=== PATIENT | male | born 1990 | race Caucasian/White ===

== ENCOUNTER 2024-04-08 16:56 | Observation (INO) | payer BC ==
[2024-04-08] MEDS: Lactated Ringers 1,000 ML IV ONE (17:50)
[2024-04-08] MEDS: Sodium Chloride 0.9% 1,000 ML IV SCH (17:55)
[2024-04-08 18:00] LABS: BASOPHILS ABSOLUTE AUTO 0.1 K/mm3 (0.0-0.2); BASOPHILS PERCENT AUTO 0.3 % (0.0-1.0); EOSINOPHILS ABSOLUTE AUTO 0.1 K/mm3 (0.0-0.4); EOSINOPHILS PERCENT AUTO 0.2 % (0.0-6.0); HEMATOCRIT 48.5 % (42.0-52.0); HEMOGLOBIN 16.3 gm/dl (14.0-18.0); IMMATURE GRAN ABSOLUTE AUTO 0.14 K/mm3 (0.00-0.05); IMMATURE GRAN PERCENT AUTO 0.6 % (0.0-0.4); LYMPHOCYTES ABSOLUTE AUTO 3.3 K/mm3 (1.0-4.8); LYMPHOCYTES PERCENT AUTO 14.9 % (24.0-44.0); MEAN CORPUSCULAR HEMOGLOBIN 28.3 pg (28.0-32.0); MEAN CORPUSCULAR HGB CONC 33.6 g/dl (32.0-36.0); MEAN CORPUSCULAR VOLUME 84.3 fl (83.0-99.0); MEAN PLATELET VOLUME 10.5 fl (9.4-12.4); MONOCYTES ABSOLUTE AUTO 1.8 K/mm3 (0.0-0.8); NEUTROPHILS ABSOLUTE AUTO 16.8 K/mm3 (1.8-7.7); PLATELET COUNT,PLT 356 K/mm3 (150-400); RED BLOOD CELL COUNT 5.75 M/mm3 (4.52-5.90); WHITE BLOOD CELL COUNT,WBC 22.09 K/mm3 (3.9-11.3)
[2024-04-08 18:33] LABS: A/G RATIO 1.4 (1-2); ALBUMIN 4.9 g/dl (3.4-5.0); ANION GAP 20.3 (5-15); BILIRUBIN TOTAL 0.9 mg/dL (0.2-1.0); BUN/CREATININE RATIO 8.3 (14-18); CALCIUM 9.5 mg/dL (8.5-10.1); CREATININE 3.6 mg/dL (0.7-1.3); EST CRCL DRUG DOSING (CG) 32.37 mL/min; POTASSIUM,K 3.3 mEq/L (3.5-5.1); PROTEIN TOTAL,TP 8.3 g/dl (6.4-8.2)
[2024-04-08] MEDS: Sodium Chloride 0.9% 1,000 ML ONE (19:09)
[2024-04-08 19:51] LABS: ANION GAP 16.3 (5-15); BUN/CREATININE RATIO 9.1 (14-18); CALCIUM 8.9 mg/dL (8.5-10.1); CREATININE 3.2 mg/dL (0.7-1.3); EST CRCL DRUG DOSING (CG) 36.41 mL/min; POTASSIUM,K 3.3 mEq/L (3.5-5.1)
[2024-04-08 19:53] LABS: APPEARANCE,URINE CLEAR (Clear); BILIRUBIN,URINE NEGATIVE (Negative); COLOR,URINE YELLOW (Yellow); GLUCOSE,URINE NEGATIVE (Negative); KETONES,URINE NEGATIVE (Negative); LEUKOCYTE ESTERASE,URINE NEGATIVE (Negative); NITRITE,URINE NEGATIVE (Negative); OCCULT BLOOD,URINE NEGATIVE (Negative); PROTEIN,URINE 1+ (Negative); UROBILINOGEN,URINE 0.2 (0.2-1.0)
[2024-04-08] MEDS: Sodium Chloride 0.9% 10 ML Syringe FLUSH PRN (20:05)
[2024-04-08] MEDS ORDERED: Lactated Ringers 1,000 ML IV SCH (20:15)
[2024-04-08 20:32] LABS: EPITHELIAL CELLS,URINE 0-5 /hpf (0-5); RBC,URINE 0-5 /hpf (0-5); WBC,URINE 0-5 /hpf (0-5)
[2024-04-08 20:33] LABS: AMORPHOUS SEDIMENT,URINE FEW /hpf (NOT SEEN); BACTERIA,URINE FEW /hpf (FEW); MUCUS,URINE MODERATE /hpf (FEW)
[2024-04-08 20:59] LABS: LACTIC ACID 2.7 mmol/L (0.4-2.0)
[2024-04-08 22:09] LABS: LACTIC ACID 1.6 mmol/L (0.4-2.0)
[2024-04-08] MEDS: Lactated Ringers 1,000 ML IV SCH (23:36)
[2024-04-09 05:20] LABS: BUN/CREATININE RATIO 13.5 (14-18); CALCIUM 8.2 mg/dL (8.5-10.1); EST CRCL DRUG DOSING (CG) 58.26 mL/min
[2024-04-09 07:43] LABS: BASOPHILS PERCENT AUTO 0.2 % (0.0-1.0); EOSINOPHILS ABSOLUTE AUTO 0.2 K/mm3 (0.0-0.4); EOSINOPHILS PERCENT AUTO 1.4 % (0.0-6.0); HEMATOCRIT 42.4 % (42.0-52.0); IMMATURE GRAN ABSOLUTE AUTO 0.05 K/mm3 (0.00-0.05); IMMATURE GRAN PERCENT AUTO 0.4 % (0.0-0.4); LYMPHOCYTES ABSOLUTE AUTO 3.4 K/mm3 (1.0-4.8); LYMPHOCYTES PERCENT AUTO 27.5 % (24.0-44.0); MEAN CORPUSCULAR HEMOGLOBIN 28.6 pg (28.0-32.0); MEAN CORPUSCULAR HGB CONC 33.5 g/dl (32.0-36.0); MEAN CORPUSCULAR VOLUME 85.3 fl (83.0-99.0); MONOCYTES ABSOLUTE AUTO 0.9 K/mm3 (0.0-0.8); MONOCYTES PERCENT AUTO 7.4 % (0.0-8.0); NEUTROPHILS ABSOLUTE AUTO 7.8 K/mm3 (1.8-7.7); NEUTROPHILS PERCENT AUTO 63.1 % (41.0-71.0); PLATELET COUNT,PLT 287 K/mm3 (150-400); RED BLOOD CELL COUNT 4.97 M/mm3 (4.52-5.90)
[2024-04-09 07:44] LABS: HEMOGLOBIN 14.2 gm/dl (14.0-18.0)
[2024-04-09] MEDS: atorvaSTATin 20 MG Tab PO SCH (08:34)
[2024-04-09] MEDS: amLODIPine 5 MG Tab PO SCH (08:34)
[2024-04-09] MEDS: Fenofibrate Nanocrystallized 145 MG Tab PO SCH (08:34)
[2024-04-09] MEDS: Potassium Chloride 20 MEQ Tab.ER PO ONE ×2 (08:34→15:12)
[2024-04-09] MEDS: Pantoprazole 40 MG Tab.CR PO SCH (08:37)
[2024-04-09] MEDS: Lactated Ringers 1,000 ML IV SCH (12:20)
[2024-04-09 14:03] LABS: ANION GAP 10.5 (5-15); BUN/CREATININE RATIO 17.3 (14-18); CALCIUM 8.4 mg/dL (8.5-10.1); CREATININE 1.5 mg/dL (0.7-1.3); EST CRCL DRUG DOSING (CG) 77.68 mL/min; POTASSIUM,K 3.5 mEq/L (3.5-5.1)
== END 2024-04-09 15:36 | disposition home or self-care (01) ==
LOC: JD.ED 16:56 → JD.MS 20:19
PROVIDERS: ADMIT Internal Medicine; ATTEND Internal Medicine
DX: N17.9 Acute kidney failure, unspecified (principal); I10 Essential (primary) hypertension; E78.00 Pure hypercholesterolemia, unspecified; K21.9 Gastro-esophageal reflux disease without esophagitis; E87.6 Hypokalemia; E87.20 Acidosis, unspecified; D72.829 Elevated white blood cell count, unspecified; F17.210 Nicotine dependence, cigarettes, uncomplicated; Z79.899 Other long term (current) drug therapy
CPT/HCPCS: 36415; 80048; 80053; 81001; 83605; 83735; 84484; 85025; 93005; A9270; J3490; J7030; J7120; 93010; 96360; 99284; 99285-25